=== PATIENT | male | born 1970 | race Caucasian/White ===

== ENCOUNTER 2018-10-06 08:02 | Day surgery (SDC) | payer BC ==
[~2018-10-06] VITALS: Ht 172.7 cm; Wt 67.7 kg
[2018-10-06] MEDS ORDERED: normal saline 1000ml 1,000 ML IV PRN (08:20)
[2018-10-06 08:50] LABS: BASOPHILS % (AUTO) 0.3 % (0-1); EOSINOPHILS # (AUTO) 0.9 X10'3 (0-0.9); EOSINOPHILS % (AUTO) 10.1 % (0-6); HEMATOCRIT 24.3 % (42.0-52.0); HEMOGLOBIN 7.7 g/dl (14.0-17.9); LYMPHOCYTES # (AUTO) 1.3 X10'3 (1.1-4.8); LYMPHOCYTES % (AUTO) 15.1 % (21-51); MEAN CORPUSCULAR HEMOGLOBIN 28.3 PG (27.0-31.0); MEAN CORPUSCULAR HGB CONC 31.6 g/dL (33.0-36.5); MEAN CORPUSCULAR VOLUME 89.8 FL (78-98); MONOCYTES # (AUTO) 0.6 X10'3 (0-0.9); MONOCYTES % (AUTO) 6.9 % (2-12); NEUTROPHILS # (AUTO) 5.8 X10'3 (1.8-7.7); NEUTROPHILS % (AUTO) 67.6 % (42-75); PLATELET COUNT 199 X10'3 (140-440); RED CELL DISTRIBUTION WIDTH 17.4 % (11.5-14.5); WHITE BLOOD COUNT 8.6 X10'3 (4.5-11.0)
[2018-10-06 09:02] LABS: ALBUMIN 1.9 G/DL (3.4-5.0); ANION GAP 12 (8-16); BLOOD UREA NITROGEN 60 MG/DL (7-18); BUN/CREATININE RATIO 6.8 (5.4-32.0); CHLORIDE 105 MMOL/L (99-107); CREATININE 8.86 MG/DL (0.60-1.10); GLUCOSE 92 MG/DL (70-104); POTASSIUM 4.1 MMOL/L (3.5-5.1); SODIUM 144 MMOL/L (135-145); eGFR 6 ML/MIN
[2018-10-06 09:03] VITALS: BP 133/84
[2018-10-06 09:08] LABS: INR 1.1 INR; PROTHROMBIN TIME 11.4 SECONDS (9.0-12.0)
[2018-10-06] MEDS ORDERED: MIDO2.5T14 PO (09:19)
[2018-10-06] MEDS ORDERED: DOCU-28 PO (09:19)
[2018-10-06] MEDS ORDERED: SEVE800T8 PO (09:19)
[2018-10-06] MEDS ORDERED: LACT1CAP86 PO (09:19)
[2018-10-06] MEDS ORDERED: LIDOcaine 1%/PF 5ML 10 MG/ML VIAL ONE (09:48)
[2018-10-06] MEDS ORDERED: heparin 1,000unit/ml 10ml vial 10 ML ONE (09:49)
[2018-10-06] MEDS ORDERED: fentaNYL/PF 50MCG/1 ML 2ML syringe ONE (09:50)
[2018-10-06] MEDS ORDERED: midazolam 2 mg/2 ml injection ONE (09:50)
[2018-10-06 10:35] VITALS: BP 136/89
[2018-10-06 10:45] VITALS: BP 140/89
[2018-10-06 11:00] VITALS: BP 141/87
[2018-10-06 11:15] VITALS: BP 135/85
[2018-10-06 11:30] VITALS: BP 129/83
== END 2018-10-06 12:00 | disposition home or self-care (01) ==
LOC: SSTAY O 08:02
PROVIDERS: ATTEND Radiology Diagnostic Radiology
DX: I12.0 Hypertensive chronic kidney disease with stage 5 chronic kidney disease or end stage renal disease (principal); N18.6 End stage renal disease; E78.5 Hyperlipidemia, unspecified; F32.9 Major depressive disorder, single episode, unspecified; Z99.2 Dependence on renal dialysis; Z72.89 Other problems related to lifestyle; Z79.899 Other long term (current) drug therapy; Z98.890 Other specified postprocedural states
CPT/HCPCS: 36415; 36558; 76937; 77001; 80048; 85025; 85610; 99152; 99153; J1644; J2001; J2250; J3010; J7030; A4620; A9270; C1750; C1894

== ENCOUNTER 2018-11-29 05:41 | Day surgery (SDC) | payer BC, MEDICARE ==
[~2018-11-29] VITALS: Ht 175.3 cm; Wt 69.8 kg
[~2018-11-29 05:41] MED LIST: CARV3.12 PO; DOCU-28 PO; DOCUMENT DATE & TIME OF BETA-BLOCKER PO ONE; SEVE800T8 PO; VIT1TABL50 PO; ceFAZolin 2gm in dextrose, iso 100 ML IV ONE; famotidine 20mg tablet PO ONE; normal saline 1000ml 1,000 ML IV SCH
[2018-11-29 06:00] VITALS: BP 138/93
[2018-11-29] MEDS ORDERED: LIDOcaine 1% (10mg/ml) 2ml vial ONE (06:12)
[2018-11-29] MEDS ORDERED: epiNEPHrine 1 mg/ml inj ONE (06:53)
[2018-11-29] MEDS ORDERED: LIDOcaine 1% 30ml preserv. free vial ONE (06:53)
[2018-11-29 07:10] LABS: BASOPHILS % (AUTO) 0.8 % (0-1); EOSINOPHILS # (AUTO) 0.2 X10'3 (0-0.9); EOSINOPHILS % (AUTO) 3.4 % (0-6); LYMPHOCYTES # (AUTO) 1.6 X10'3 (1.1-4.8); LYMPHOCYTES % (AUTO) 28.3 % (21-51); MEAN CORPUSCULAR HEMOGLOBIN 30.7 PG (27.0-31.0); MEAN PLATELET VOLUME 8.4 FL (7.4-10.4); MONOCYTES # (AUTO) 0.6 X10'3 (0-0.9); NEUTROPHILS # (AUTO) 3.3 X10'3 (1.8-7.7); NEUTROPHILS % (AUTO) 56.5 % (42-75); PRE OP HEMATOCRIT 46.7 % (42.0-52.0); PRE OP HEMOGLOBIN 15.4 g/dL (14.0-17.9); RED BLOOD COUNT 5.02 X10'6 (4.70-6.10); RED CELL DISTRIBUTION WIDTH 16.3 % (11.5-14.5)
[2018-11-29 07:23] LABS: PRE OP PLATELET COUNT 97 X10'3 (140-440)
[2018-11-29 07:24] LABS: ALBUMIN 3.6 G/DL (3.4-5.0); ALBUMIN/GLOBULIN RATIO 0.9 (1.1-1.5); ALKALINE PHOSPHATASE 109 IU/L (46-116); BLOOD UREA NITROGEN 70 MG/DL (7-18); BUN/CREATININE RATIO 6.5 (5.4-32.0); CALCIUM 10.6 MG/DL (8.5-10.1); CHLORIDE 103 MMOL/L (99-107); CREATININE 10.75 MG/DL (0.60-1.10); PRE OP ALT 17 U/L (30-65); PRE OP ANION GAP 12 (8-16); PRE OP AST 12 U/L (10-37); PRE OP BILIRUB, TOTAL 0.3 MG/DL (0.0-1.0); PRE OP GLUCOSE 94 MG/DL (70-104); PRE OP SODIUM 144 MMOL/L (135-145); TOTAL CARBON DIOXIDE 29.3 MMOL/L (24-32); TOTAL PROTEIN 7.4 G/DL (6.4-8.2); eGFR 5 ML/MIN
[2018-11-29 07:27] LABS: PRE OP POTASSIUM 6.3 MMOL/L (3.4-5.1)
[2018-11-29 08:17] LABS: ALANINE AMINOTRANSFERASE 15 U/L (12-78); ALBUMIN 3.4 G/DL (3.4-5.0); ALBUMIN/GLOBULIN RATIO 0.9 (1.1-1.5); ALKALINE PHOSPHATASE 103 IU/L (46-116); ANION GAP 13 (8-16); ASPARTATE AMINO TRANSFERASE 11 U/L (10-37); BILIRUBIN,TOTAL 0.3 MG/DL (0.1-1.0); BLOOD UREA NITROGEN 72 MG/DL (7-18); BUN/CREATININE RATIO 6.9 (5.4-32.0); CALCIUM 10.6 MG/DL (8.5-10.1); CHLORIDE 103 MMOL/L (99-107); CREATININE 10.49 MG/DL (0.60-1.10); GLUCOSE 90 MG/DL (70-104); POTASSIUM 6.5 MMOL/L (3.5-5.1); SODIUM 142 MMOL/L (135-145); TOTAL CARBON DIOXIDE 26.1 MMOL/L (24-32); TOTAL PROTEIN 7.1 G/DL (6.4-8.2); eGFR 5 ML/MIN
[2018-11-29] MEDS ORDERED: insulin regular, human 10 units/0.1 ml syringe IV ONE (08:30)
[2018-11-29] MEDS ORDERED: albuterol 2.5 MG/3 ML nebule CONTNEB PRN (08:30)
[2018-11-29] MEDS ORDERED: dextrose 50%-water 50ml dispensing syringe IV ONE (08:30)
[2018-11-29] MEDS ORDERED: sodium bicarbonate (8.4%) 1 mEq/ml syringe IV ONE (08:30)
[2018-11-29 11:24] LABS: ALBUMIN 3.1 G/DL (3.4-5.0); ANION GAP 14 (8-16); BLOOD UREA NITROGEN 74 MG/DL (7-18); CALCIUM 9.7 MG/DL (8.5-10.1); CHLORIDE 105 MMOL/L (99-107); CREATININE 10.61 MG/DL (0.60-1.10); GLUCOSE 79 MG/DL (70-104); POTASSIUM 5.1 MMOL/L (3.5-5.1); SODIUM 146 MMOL/L (135-145); TOTAL CARBON DIOXIDE 27.5 MMOL/L (24-32); eGFR 5 ML/MIN
--- NOTE | 2018-11-29 11:34 | NUR ---
PT CAME IN FOR SURGERY, LABS DRAWN, K 6.3, REPORTED, DR MUÑOZ CONSULTED, PT MEDICATED, REDRAWN AND NOW K IS 5.1. REPORTED, PROCEDURE TO PROCEED. PT IN NO DISTRESS.
[2018-11-29] MEDS ORDERED: glycopyrrolate 0.2mg/ml inj ONE (11:45)
[2018-11-29] MEDS ORDERED: sevoflurane 250ml liquid IH ONE (11:45)
[2018-11-29] MEDS ORDERED: neostigmine methylsulfate 1 MG/ML 10ml vial ONE (11:45)
[2018-11-29] MEDS ORDERED: rocuronium 10mg/ml inj IV ONE (11:45)
[2018-11-29] MEDS ORDERED: dexamethasone sod phosphate 10mg/ml inj ONE (11:45)
[2018-11-29] MEDS ORDERED: midazolam 2 mg/2 ml injection ONE (11:55)
[2018-11-29] MEDS ORDERED: fentaNYL/PF 50MCG/1 ML 2ML syringe ONE ×2 (11:55→12:08)
[2018-11-29] MEDS ORDERED: ondansetron/PF 4mg/2ml inj ONE (12:13)
[2018-11-29] MEDS ORDERED: propofol inj 20 ML IV ONE (12:14)
[2018-11-29] MEDS ORDERED: BUPIVAcaine/PF 2.5mg/ml (0.25%) 10ml vial ONE (12:16)
[2018-11-29] MEDS ORDERED: heparin 10,000 units/1 ML INJ IR ONE (12:29)
[2018-11-29] MEDS ORDERED: ringers solution, lacted 1,000 ML IV SCH (13:00)
[2018-11-29] MEDS ORDERED: morphine 4 MG/ML inj SYRINge IV PRN ×2 (13:00)
[2018-11-29] MEDS ORDERED: proCHLORperazine 10 MG/2 ml inj IV PRN (13:00)
[2018-11-29] MEDS ORDERED: ondansetron/PF 4mg/2ml inj IV PRN (13:00)
[2018-11-29] MEDS ORDERED: meperidine/PF 25mg/ml syringe IV PRN (13:00)
[2018-11-29 13:16] VITALS: BP 133/100
--- NOTE | 2018-11-29 13:16 | NUR ---
Received from OR via MAC , accompanied by Anesthesiologist MIMI and report given by Anesthesiolgist. PATIENT WITH 20G PIV IN RIGHT UE RUNNING NS AT 10. ORAL AIRWAY REMOVED SHORTLY AFTER ARRIVAL LEFT AC AREA HAS DRESSING THAT IS CDI. PATIENT WITH 10L MASK ON WITH 100% SATURATIONS. VSS Addendum: 11/29/18 at 1325 by Edy De Leon RN, RN Amended: Links added.
[2018-11-29 13:26] VITALS: BP 136/90
[2018-11-29 13:36] VITALS: BP 125/105
[2018-11-29 13:46] VITALS: BP 121/85
[2018-11-29 13:56] VITALS: BP 123/83
--- NOTE | 2018-11-29 14:06 | NUR ---
ALL DC CRITERIA HAS BEEN MET. IV TAKEN OUT WITHOUT COMPLICATIONS. ALL INSTRUCTIONS COVERED AND ALL QUESTIONS ANSWERED. DRESSINGS CDI. OUT VIA WHEELCHAIR TO PERSONAL VEHICLE WHERE PATIENT WAS SECURED IN AND DRIVEN HOME BY FAMILY. NO C.O PAIN AND DRESSING TO LEFT AC IS CDI. Addendum: 11/29/18 at 1422 by Edy De Leon RN, RN Amended: Links added.
== END 2018-11-29 14:06 | disposition home or self-care (01) ==
LOC: PAS 05:41
PROVIDERS: ATTEND Surgery
DX: I12.0 Hypertensive chronic kidney disease with stage 5 chronic kidney disease or end stage renal disease (principal); N18.6 End stage renal disease; N17.9 Acute kidney failure, unspecified; Q61.3 Polycystic kidney, unspecified; Z79.899 Other long term (current) drug therapy; Z98.890 Other specified postprocedural states
CPT/HCPCS: 36415; 36821; 80053; 85025; 93005; J0171; J0690; J1100; J1644; J1815; J2250; J2270; J2405; J2704; J2710; J3010; J3490; J7030; J7120; 80048; A7000

== ENCOUNTER 2018-12-12 13:03 | Outpatient (CLI) | payer MEDICARE, BC ==
[~2018-12-12 13:03] MED LIST changes: -DOCUMENT DATE & TIME OF BETA-BLOCKER PO ONE; -ceFAZolin 2gm in dextrose, iso 100 ML IV ONE; -famotidine 20mg tablet PO ONE; -normal saline 1000ml 1,000 ML IV SCH
== END 2018-12-12 23:59 | disposition home or self-care (01) ==
LOC: VAS 13:03
PROVIDERS: ATTEND Surgery
DX: I77.0 Arteriovenous fistula, acquired (principal); I10 Essential (primary) hypertension
CPT/HCPCS: 93990

== ENCOUNTER 2020-05-07 12:19 | Day surgery (SDC) | payer MEDICARE, BC ==
[~2020-05-07] VITALS: Ht 172.7 cm; Wt 74.6 kg
[2020-05-07] MEDS ORDERED: PHO667C PO (12:41)
[2020-05-07] MEDS ORDERED: LOSA25TA96 PO (12:42)
[2020-05-07 13:04] VITALS: BP 134/87
[2020-05-07] MEDS ORDERED: LIDOcaine 1%/PF 5ML 10 MG/ML VIAL ONE (13:12)
[2020-05-07] MEDS ORDERED: heparin 1,000unit/ml 10ml vial 10 ML ONE (13:12)
[2020-05-07] MEDS ORDERED: ceFAZolin 1GM/D5W- ADD-VANTAGE 50 ML IV ONE (13:50)
[2020-05-07 14:25] VITALS: BP 150/84
== END 2020-05-07 14:35 | disposition home or self-care (01) ==
LOC: SSTAY O 12:19
PROVIDERS: ATTEND Radiology Diagnostic Radiology
DX: T82.41XA Breakdown (mechanical) of vascular dialysis catheter, initial encounter (principal); N18.9 Chronic kidney disease, unspecified; Z79.899 Other long term (current) drug therapy; Y83.8 Other surgical procedures as the cause of abnormal reaction of the patient, or of later complication, without mention of misadventure at the time of the procedure; Y92.89 Other specified places as the place of occurrence of the external cause
CPT/HCPCS: 36581; 77001; C1750; C1769; J1644; A9270

== ENCOUNTER 2021-10-22 11:33 | Day surgery (SDC) | payer MEDICARE, MEDICAID ==
[~2021-10-22] VITALS: Ht 172.7 cm; Wt 75.4 kg
[2021-10-22 11:25] VITALS: BP 142/96
[~2021-10-22 11:33] MED LIST changes: -DOCU-28 PO; +LOSA25TA96 PO; +PHO667C PO; -SEVE800T8 PO
[2021-10-22] MEDS ORDERED: normal saline 1000ml 1,000 ML IV SCH (11:40)
[2021-10-22] MEDS ORDERED: FOLI1TAB27 PO (11:46)
[2021-10-22] MEDS ORDERED: CARV-49 PO (11:46)
[2021-10-22] MEDS ORDERED: AURYXIA PO (11:46)
[2021-10-22] MEDS ORDERED: FOLI0.8T7 PO (11:46)
[2021-10-22] MEDS ORDERED: ESCI20TA39 PO (11:46)
[2021-10-22] MEDS ORDERED: CINA60TA PO (11:46)
[2021-10-22] MEDS ORDERED: LOSA25TA96 PO (11:46)
[2021-10-22] MEDS ORDERED: ceFAZolin inj. 2,000 MG in normal saline soln 50 ML IV ONE (13:20)
[2021-10-22] MEDS ORDERED: heparin 1,000unit/ml 10ml vial 10 ML ONE (13:24)
[2021-10-22] MEDS ORDERED: LIDOcaine 1% 30ml preserv. free vial ONE (13:25)
[2021-10-22] MEDS ORDERED: cefazolin/dext.iso 2gm/50ml 50 ML IV ONE (13:25)
[2021-10-22 14:17] VITALS: BP 165/90
[2021-10-22 14:20] VITALS: BP 165/90
== END 2021-10-22 14:20 | disposition home or self-care (01) ==
LOC: SSTAY O 11:33
PROVIDERS: ATTEND Radiology Vascular & Interventional Radiology
DX: T82.49XA Other complication of vascular dialysis catheter, initial encounter (principal); N18.6 End stage renal disease; N28.89 Other specified disorders of kidney and ureter; Y83.8 Other surgical procedures as the cause of abnormal reaction of the patient, or of later complication, without mention of misadventure at the time of the procedure; Y92.89 Other specified places as the place of occurrence of the external cause
CPT/HCPCS: 36581; 77001; C1750; C1769; J1644; J3490; A9270

== ENCOUNTER 2022-08-12 07:16 | Day surgery (SDC) | payer MEDICARE, MEDICAID ==
[~2022-08-12] VITALS: Ht 175.3 cm; Wt 75.4 kg
[~2022-08-12 07:16] MED LIST changes: +AURYXIA PO; +CARV-49 PO; -CARV3.12 PO; +CINA60TA PO; +ESCI20TA39 PO; +FOLI0.8T7 PO; +FOLI1TAB27 PO; -PHO667C PO; -VIT1TABL50 PO
[2022-08-12] MEDS ORDERED: normal saline 1000ml 1,000 ML IV PRN (07:45)
[2022-08-12] MEDS ORDERED: ceFAZolin inj. 2,000 MG in normal saline soln 50 ML IV ONE (07:45)
[2022-08-12] MEDS ORDERED: ceFAZolin inj. 2,000 MG in dextrose 5%-water 100 ML IV ONE (07:50)
[2022-08-12 08:23] VITALS: BP 148/114
[2022-08-12] MEDS ORDERED: AMLO5TAB16 PO (08:30)
[2022-08-12] MEDS ORDERED: LOSA50TA64 PO (08:30)
[2022-08-12] MEDS ORDERED: LIDOcaine 1% 30ml preserv. free vial ONE (08:39)
[2022-08-12] MEDS ORDERED: heparin 1,000unit/ml 10ml vial 10 ML ONE (09:33)
[2022-08-12 09:56] VITALS: BP 182/98
== END 2022-08-12 10:00 | disposition home or self-care (01) ==
LOC: SSTAY O 07:16
PROVIDERS: ATTEND Radiology Vascular & Interventional Radiology
DX: T82.41XA Breakdown (mechanical) of vascular dialysis catheter, initial encounter (principal); I12.0 Hypertensive chronic kidney disease with stage 5 chronic kidney disease or end stage renal disease; N18.6 End stage renal disease; Q61.3 Polycystic kidney, unspecified; Z79.899 Other long term (current) drug therapy; Y83.8 Other surgical procedures as the cause of abnormal reaction of the patient, or of later complication, without mention of misadventure at the time of the procedure
CPT/HCPCS: 36581; 77001; C1750; C1769; J1644; J3490; J7030; A4620; A9270